=== PATIENT | female | born 1945 | race Two or more races ===

== ENCOUNTER 2023-01-10 17:51 | Inpatient (IN) | payer MEDICARE, OTHER ==
[~2023-01-10] VITALS: Ht 152.4 cm; Wt 84.1 kg
[2023-01-10 19:42] LABS: Urine Bacteria NONE SEEN /hpf (None Seen); Urine Blood Negative /uL (Negative); Urine Specific Gravity 1.005 (1.001-1.035); Urine WBC 2 /hpf (0 - 5)
[2023-01-10 20:14] LABS: Basophils # (auto) 0 10 ^3/uL (0-0.2); Basophils % (auto) 0.9 % (0.0-2.0); Eosinophils # (auto) 0.1 10 ^3/uL (0-0.8); Eosinophils % (auto) 1.1 % (0.0-7.0); Hematocrit 37.4 % (36.0-46.0); Lymphocytes % (auto) 40.8 % (10.0-50.0); Mean Corpuscular Hemoglobin 27.9 pg (28.0-32.0); Monocytes # (auto) 0.7 10 ^3/uL (0-1.3); Monocytes % (auto) 14.2 % (0.0-12.0); Neutrophils # (auto) 2.1 10 ^3/uL (1.6-8.6); Nucleated Red Blood Cells % 0.2 %; Red Blood Cells 4.29 10^6/uL (4.0-5.20); Red Cell Distribution Width 19.1 % (11.8-14.3); White Blood Cell 4.8 10^3/uL (4.4-10.8)
[2023-01-10 20:43] LABS: Calcium 8.2 mg/dL (8.5-10.1); Magnesium 2.2 mg/dL (1.6-2.6); Potassium 3.3 mmol/L (3.5-5.1)
[2023-01-10 20:46] LABS: BUN/Creatinine Ratio 14.3 (10.0-20.0); Bilirubin, Total 1.4 mg/dL (0.2-1.0); Total Protein 7.3 g/dL (6.4-8.2)
[2023-01-11] MEDS ORDERED: POTASSIUM EFFERVESENT TAB 25 MEQ PO ONE (01:45)
[2023-01-11] MEDS ORDERED: DOCUSATE SOD 100 MG CAP PO PRN (05:00)
[2023-01-11] MEDS ORDERED: ONDANSETRON HCL 4 MG/2 ML VIAL IV PRN (05:00)
[2023-01-11] MEDS ORDERED: ACETAMINOPHEN 325 MG TAB PO PRN (05:00)
[2023-01-11] MEDS ORDERED: DEXTROSE (50%) 50ML SYRG IV PRN (05:00)
[2023-01-11] MEDS ORDERED: FUROSEMIDE 40 MG/4 ML VIAL IV ONE (05:00)
[2023-01-11] MEDS: HYDROcodone-ACET 5/325MG TAB PO PRN ×2 (05:35→23:37)
[2023-01-11] MEDS: SODIUM CHLOR 0.9% PF (SALINE LOCK) 10ML VIAL/SYR IV SCH ×3 (05:36→22:00)
[2023-01-11] MEDS ORDERED: NITROGLYCERIN 0.4 MG SL TAB SL PRN (05:45)
[2023-01-11] MEDS ORDERED: MORPHINE SULFATE INJ 2 MG/ml SYRG IV PRN (05:45)
[2023-01-11] MEDS ORDERED: AZITHROMYCIN 500MG/ 250ML 250 ML IV ONE (06:30)
[2023-01-11] MEDS: InsuLIN REG 1unit/0.01ml Soln (100units/ml) SC SCH ×4 (06:57→23:30)
[2023-01-11] MEDS: ACCU-CHEK COMFORT CURVE STRIP VI SCH ×4 (06:57→23:28)
[2023-01-11 07:01] LABS: Basophils # (auto) 0.1 10 ^3/uL (0-0.2); Basophils % (auto) 1.1 % (0.0-2.0); Eosinophils # (auto) 0.1 10 ^3/uL (0-0.8); Eosinophils % (auto) 1.6 % (0.0-7.0); Hematocrit 38.7 % (36.0-46.0); Hemoglobin 12.9 g/dL (12.2-16.2); Lymphocytes # (auto) 1.6 10 ^3/uL (0.4-5.4); Lymphocytes % (auto) 33.8 % (10.0-50.0); Mean Corpuscular Hemoglobin 28.9 pg (28.0-32.0); Mean Corpuscular Hgb Conc. 33.4 g/dL (32.0-36.0); Mean Corpuscular Volume 86.5 fL (80.0-100.0); Monocytes # (auto) 0.7 10 ^3/uL (0-1.3); Monocytes % (auto) 14.6 % (0.0-12.0); Neutrophils # (auto) 2.4 10 ^3/uL (1.6-8.6); Neutrophils % (auto) 48.9 % (37.0-80.0); Nucleated Red Blood Cells % 0.2 %; Red Blood Cells 4.48 10^6/uL (4.0-5.20); Red Cell Distribution Width 18.7 % (11.8-14.3); White Blood Cell 4.9 10^3/uL (4.4-10.8)
[2023-01-11 07:27] LABS: Calcium 8.4 mg/dL (8.5-10.1); Potassium 3.6 mmol/L (3.5-5.1)
[2023-01-11 07:49] LABS: BUN/Creatinine Ratio 11.5 (10.0-20.0); Bilirubin, Total 1.4 mg/dL (0.2-1.0)
[2023-01-11] MEDS: AZITHROMYCIN 500MG/ 250ML 250 ML IV SCH (10:11)
[2023-01-11] MEDS: FUROSEMIDE 40 MG/4 ML VIAL IV SCH (10:11)
[2023-01-11] MEDS: CARVEDILOL 3.125 MG TAB PO SCH ×2 (10:11→23:28)
[2023-01-11] MEDS: ASPirin 81 mg TAB PO SCH (10:27)
[2023-01-11 11:38] LABS: Urine Bacteria NONE SEEN /hpf (None Seen); Urine Blood Negative /uL (Negative); Urine Specific Gravity 1.005 (1.001-1.035); Urine WBC 1 /hpf (0 - 5)
[2023-01-11] MEDS: ATORVASTATIN 20 MG TAB PO SCH (23:28)
[2023-01-12 05:57] LABS: Basophils # (auto) 0 10 ^3/uL (0-0.2); Basophils % (auto) 0.7 % (0.0-2.0); Eosinophils # (auto) 0.1 10 ^3/uL (0-0.8); Eosinophils % (auto) 2.1 % (0.0-7.0); Hematocrit 35.9 % (36.0-46.0); Hemoglobin 11.6 g/dL (12.2-16.2); Lymphocytes # (auto) 1.3 10 ^3/uL (0.4-5.4); Lymphocytes % (auto) 25.8 % (10.0-50.0); Mean Corpuscular Hgb Conc. 32.2 g/dL (32.0-36.0); Mean Corpuscular Volume 86.9 fL (80.0-100.0); Monocytes # (auto) 0.7 10 ^3/uL (0-1.3); Monocytes % (auto) 12.8 % (0.0-12.0); Neutrophils % (auto) 58.6 % (37.0-80.0); Nucleated Red Blood Cells % 0.2 %; Red Blood Cells 4.13 10^6/uL (4.0-5.20); Red Cell Distribution Width 18.7 % (11.8-14.3); White Blood Cell 5.1 10^3/uL (4.4-10.8)
[2023-01-12] MEDS: SODIUM CHLOR 0.9% PF (SALINE LOCK) 10ML VIAL/SYR IV SCH ×3 (06:06→21:58)
[2023-01-12 06:27] LABS: Albumin 2.3 g/dL (3.4-5.0); BUN/Creatinine Ratio 12.8 (10.0-20.0); Calcium 8.4 mg/dL (8.5-10.1); Potassium 3.1 mmol/L (3.5-5.1)
[2023-01-12 06:31] LABS: Bilirubin, Total 1.4 mg/dL (0.2-1.0); Total Protein 6.7 g/dL (6.4-8.2)
[2023-01-12] MEDS: ACCU-CHEK COMFORT CURVE STRIP VI SCH ×4 (06:49→21:57)
[2023-01-12] MEDS: InsuLIN REG 1unit/0.01ml Soln (100units/ml) SC SCH ×4 (06:50→22:05)
[2023-01-12] MEDS ORDERED: POTASSIUM EFFERVESENT TAB 25 MEQ PO ONE (12:15)
[2023-01-12] MEDS: CARVEDILOL 3.125 MG TAB PO SCH (12:18)
[2023-01-12] MEDS: AZITHROMYCIN 500MG/ 250ML 250 ML IV SCH (12:18)
[2023-01-12] MEDS: FUROSEMIDE 40 MG/4 ML VIAL IV SCH ×2 (12:18→18:00)
[2023-01-12] MEDS: ASPirin 81 mg TAB PO SCH (12:23)
[2023-01-12] MEDS ORDERED: LOSA50TA46 PO (13:59)
[2023-01-12] MEDS ORDERED: FURO40TA4 PO (13:59)
[2023-01-12] MEDS ORDERED: INSLANTI SC (13:59)
[2023-01-12] MEDS ORDERED: LATA0.008 EACHEYE (13:59)
[2023-01-12] MEDS ORDERED: ATOR-47 PO (13:59)
[2023-01-12 14:00] VITALS: BP 86/37
[2023-01-12 16:31] LABS: INR 1.3 (0.9-1.15); Partial Thromboplastin Time 29.9 sec (24.6-33.4)
[2023-01-12] MEDS: ATORVASTATIN 20 MG TAB PO SCH (21:57)
[2023-01-12 22:00] VITALS: BP 93/40
[2023-01-13] VITALS (69 sets, daily range): BP systolic 48–124; BP diastolic 14–77
[2023-01-13] MEDS: FUROSEMIDE 40 MG/4 ML VIAL IV SCH (06:00)
[2023-01-13] MEDS: EMPAGLIFLOZIN 10 MG TAB PO SCH (06:34)
[2023-01-13] MEDS: ACCU-CHEK COMFORT CURVE STRIP VI SCH ×4 (06:35→21:47)
[2023-01-13] MEDS: InsuLIN REG 1unit/0.01ml Soln (100units/ml) SC SCH ×4 (06:35→21:47)
[2023-01-13] MEDS: SODIUM CHLOR 0.9% PF (SALINE LOCK) 10ML VIAL/SYR IV SCH ×3 (06:35→21:48)
[2023-01-13 07:56] LABS: Albumin 2.6 g/dL (3.4-5.0); Calcium 8.3 mg/dL (8.5-10.1); Magnesium 2.1 mg/dL (1.6-2.6); Potassium 3.7 mmol/L (3.5-5.1)
[2023-01-13 07:59] LABS: BUN/Creatinine Ratio 15.9 (10.0-20.0); Bilirubin, Total 1.2 mg/dL (0.2-1.0); Total Protein 7.2 g/dL (6.4-8.2)
[2023-01-13] MEDS: ASPirin 81 mg TAB PO SCH (10:04)
[2023-01-13] MEDS ORDERED: DOPamine 1600MCG/ML D5W 250 ML IV SCH (10:15)
[2023-01-13] MEDS ORDERED: BUMETANIDE 2.5mg/10ml (0.25 mg/ml) INJ IV ONE (13:00)
[2023-01-13] MEDS: DOPamine 1600MCG/ML D5W 250 ML IV SCH (13:15)
[2023-01-13] MEDS ORDERED: ETOMIDATE (2MG/ML) 20ML VIAL IV ONE ×2 (13:24→13:45)
[2023-01-13] MEDS ORDERED: ROCURONIUM 10MG/ML 10ML VIAL IV ONE ×2 (13:24→13:45)
[2023-01-13] MEDS ORDERED: NOREPINEPHRINE 8 MG/250ML KIT 250 ML IV ONE (13:27)
[2023-01-13] MEDS ORDERED: fentaNYL Drip 2500mCg/250mlNS 250 ML IV ONE (13:30)
[2023-01-13] MEDS ORDERED: MIDAZOLAM DRIP 50 mg/50mL 50 ML IV ONE (13:31)
[2023-01-13] MEDS: NOREPINEPHRINE 8 MG/250ML KIT 250 ML IV SCH (13:32)
[2023-01-13] MEDS: MIDAZOLAM DRIP 50 mg/50mL 50 ML IV SCH (14:00)
[2023-01-13] MEDS: fentaNYL Drip 2500mCg/250mlNS 250 ML IV SCH (14:05)
[2023-01-13] MEDS ORDERED: DIGOXIN (250MCG/ML) 2 ML AMPULE IV ONE (15:00)
[2023-01-13] MEDS: FUROSEMIDE INJECTION 100 MG in D5W 5% 100 ML IV SCH (15:49)
[2023-01-13 16:15] LABS: Basophils # (auto) 0.1 10 ^3/uL (0-0.2); Basophils % (auto) 0.5 % (0.0-2.0); Eosinophils # (auto) 0 10 ^3/uL (0-0.8); Eosinophils % (auto) 0.2 % (0.0-7.0); Hematocrit 47.5 % (36.0-46.0); Hemoglobin 15.1 g/dL (12.2-16.2); Lymphocytes # (auto) 1.7 10 ^3/uL (0.4-5.4); Lymphocytes % (auto) 14.2 % (10.0-50.0); Mean Corpuscular Hemoglobin 28.4 pg (28.0-32.0); Mean Corpuscular Hgb Conc. 31.8 g/dL (32.0-36.0); Mean Corpuscular Volume 89.2 fL (80.0-100.0); Monocytes # (auto) 0.9 10 ^3/uL (0-1.3); Neutrophils # (auto) 9.1 10 ^3/uL (1.6-8.6); Neutrophils % (auto) 77.1 % (37.0-80.0); Nucleated Red Blood Cells % 0.1 %; Red Blood Cells 5.32 10^6/uL (4.0-5.20); Red Cell Distribution Width 19.4 % (11.8-14.3); White Blood Cell 11.9 10^3/uL (4.4-10.8)
[2023-01-13] MEDS ORDERED: FUROSEMIDE 20 MG/2 ML VIAL IV SCH (18:00)
[2023-01-13] MEDS: ATORVASTATIN 20 MG TAB PO SCH (21:48)
[2023-01-14] VITALS (108 sets, daily range): BP systolic 67–115; BP diastolic 14–70
[2023-01-14] MEDS: FUROSEMIDE INJECTION 100 MG in D5W 5% 100 ML IV SCH ×3 (01:30→21:30)
[2023-01-14 04:24] LABS: Basophils # (auto) 0.1 10 ^3/uL (0-0.2); Basophils % (auto) 0.6 % (0.0-2.0); Eosinophils # (auto) 0.1 10 ^3/uL (0-0.8); Eosinophils % (auto) 1.2 % (0.0-7.0); Hematocrit 43.4 % (36.0-46.0); Hemoglobin 14.3 g/dL (12.2-16.2); Lymphocytes # (auto) 2.3 10 ^3/uL (0.4-5.4); Mean Corpuscular Hemoglobin 28.4 pg (28.0-32.0); Mean Corpuscular Hgb Conc. 32.8 g/dL (32.0-36.0); Mean Corpuscular Volume 86.4 fL (80.0-100.0); Monocytes # (auto) 0.9 10 ^3/uL (0-1.3); Monocytes % (auto) 8.7 % (0.0-12.0); Neutrophils # (auto) 6.5 10 ^3/uL (1.6-8.6); Neutrophils % (auto) 66.5 % (37.0-80.0); Nucleated Red Blood Cells % 0.1 %; Red Blood Cells 5.03 10^6/uL (4.0-5.20); Red Cell Distribution Width 18.6 % (11.8-14.3); White Blood Cell 9.8 10^3/uL (4.4-10.8)
[2023-01-14 04:33] LABS: Calcium 8.5 mg/dL (8.5-10.1)
[2023-01-14] MEDS: SODIUM CHLOR 0.9% PF (SALINE LOCK) 10ML VIAL/SYR IV SCH ×3 (06:25→22:39)
[2023-01-14] MEDS: EMPAGLIFLOZIN 10 MG TAB PO SCH (06:29)
[2023-01-14] MEDS: ACCU-CHEK COMFORT CURVE STRIP VI SCH ×4 (06:48→22:00)
[2023-01-14] MEDS: DOPamine 1600MCG/ML D5W 250 ML IV SCH (06:48)
[2023-01-14] MEDS: InsuLIN REG 1unit/0.01ml Soln (100units/ml) SC SCH ×4 (06:51→22:00)
[2023-01-14] MEDS ORDERED: POTASSIUM EFFERVESENT TAB 25 MEQ PO ONE (09:15)
[2023-01-14] MEDS ORDERED: Glucerna 1.2 Cal 1Liter BOTTLE GT SCH (09:15)
[2023-01-14] MEDS ORDERED: DOPamine 1600MCG/ML D5W 250 ML IV SCH (09:15)
[2023-01-14] MEDS ORDERED: POTASSIUM CHL 20MEQ/100ML 100 ML IV ONE (09:15)
[2023-01-14] MEDS ORDERED: FAMOTIDINE (10MG/ML) 2ML VL IV ONE (09:30)
[2023-01-14] MEDS ORDERED: methylPREDNISolone SOD SUCC 125 MG/2 ML VL IV ONE (09:30)
[2023-01-14] MEDS ORDERED: ACETAMINOPHEN 650 mg PER 20.3 mL UD GT ONE (09:30)
[2023-01-14] MEDS ORDERED: diphenhdrAMINE HCL 50 MG/1 ML VL IV ONE (09:30)
[2023-01-14] MEDS: ASPirin 81 mg TAB PO SCH (09:58)
[2023-01-14] MEDS ORDERED: DIGOXIN (250MCG/ML) 2 ML AMPULE IV SCH (10:00)
[2023-01-14] MEDS ORDERED: POTASSIUM EFFERVESENT TAB 25 MEQ PO SCH (10:00)
[2023-01-14 10:31] LABS: Cholesterol 94 mg/dL (< 200); HDL Cholesterol 40 mg/dL (40-59); LDL Cholesterol 51 mg/dL (< 100); Triglycerides 99 mg/dL (< 150)
[2023-01-14] MEDS: MIDAZOLAM DRIP 50 mg/50mL 50 ML IV SCH (13:45)
[2023-01-14] MEDS: fentaNYL Drip 2500mCg/250mlNS 250 ML IV SCH (13:45)
[2023-01-14] MEDS: FREE WATER GT SCH ×2 (14:00→22:00)
[2023-01-14 14:31] LABS: Magnesium 1.8 mg/dL (1.6-2.6); Potassium 4.4 mmol/L (3.5-5.1)
[2023-01-14] MEDS ORDERED: MAGNESIUM SULFATE 1GM/100ML 100 ML IV ONE (15:00)
[2023-01-14] MEDS: NOREPINEPHRINE 8 MG/250ML KIT 250 ML IV SCH ×2 (15:09→20:07)
[2023-01-14] MEDS ORDERED: AMIODARONE HCL 150 MG in D5W 5% 100 ML IV ONE (15:45)
[2023-01-14] MEDS ORDERED: AMIODARONE 450mg/250ml AE 250 ML IV SCH (16:00)
[2023-01-14] MEDS: PIPERACILLIN-TAZOB 3.375GM 100 ML IV SCH (18:00)
[2023-01-14] MEDS: PHENYLEPHRINE INJ 80 MG in SODIUM CHL 0.9% 242 ML IV SCH (19:52)
[2023-01-14] MEDS ORDERED: ALBUMIN 5% 250 ML IV ONE (20:45)
[2023-01-14] MEDS: ATORVASTATIN 20 MG TAB PO SCH (22:00)
[2023-01-14] MEDS: AMIODARONE 450mg/250ml AE 250 ML IV SCH (22:38)
[2023-01-14] MEDS: VASOPRESSIN 20 UNITS in SODIUM CHL 0.9% 99 ML IV SCH (22:39)
[2023-01-14] MEDS ORDERED: EPINEPHrine HCL 250 ML IV ONE (23:12)
[2023-01-14] MEDS: EPINEPHrine HCL 250 ML IV SCH (23:15)
[2023-01-15] VITALS (106 sets, daily range): BP systolic 0–125; BP diastolic 0–80
[2023-01-15] MEDS ORDERED: SODIUM BICARBONATE 8.4 % INJ 50ML VIAL IV ONE ×4 (01:55→04:15)
[2023-01-15] MEDS ORDERED: ALBUMIN 5% 250 ML IV ONE ×2 (01:58→02:00)
[2023-01-15] MEDS ORDERED: PHENYLEPHRINE IV 250 ML IV ONE (02:48)
[2023-01-15] MEDS ORDERED: PHENYLEPHRINE HCL 10 MG/ML VL ONE (02:49)
[2023-01-15] MEDS: PHENYLEPHRINE INJ 80 MG in SODIUM CHL 0.9% 242 ML IV SCH ×2 (02:50→18:30)
[2023-01-15 03:24] LABS: Alanine Aminotransferase 60 U/L (13-56); Albumin 1.9 g/dL (3.4-5.0); Anion Gap 25 (5-15); Aspartate Aminotransferase 323 U/L (15-37); BUN/Creatinine Ratio 11.1 (10.0-20.0); Blood Urea Nitrogen 19 mg/dL (7-18); Calcium 7.2 mg/dL (8.5-10.1); Carbon Dioxide 11 mmol/L (21-32); Chloride 97 mmol/L (98-107); GFR African American 37 mL/min; GFR Non-African American 31 mL/min; Magnesium 2.5 mg/dL (1.6-2.6); Sodium 133 mmol/L (136-145)
[2023-01-15 03:26] LABS: Alkaline Phosphatase 62 U/L (45-117); Bilirubin, Total 3.3 mg/dL (0.2-1.0); Total Protein 5.6 g/dL (6.4-8.2)
[2023-01-15 03:29] LABS: Glucose 42 mg/dL (74-106)
[2023-01-15] MEDS ORDERED: DEXTROSE 10% 250 ML IV ONE ×2 (03:30→04:48)
[2023-01-15] MEDS ORDERED: DOPamine 1600MCG/ML D5W 250 ML IV ONE (03:39)
[2023-01-15] MEDS ORDERED: SODIUM BICARBONATE 8.4% INJ 50ML SYRINGE ONE (04:08)
[2023-01-15] MEDS ORDERED: SODIUM BICARBONATE 50ML VIAL 150 ML in SOD CHL 0.45% 1,000 ML IV ONE (04:15)
[2023-01-15] MEDS: DOPamine 1600MCG/ML D5W 250 ML IV SCH ×2 (04:24→08:36)
[2023-01-15 04:40] LABS: White Blood Cell 12.3 10^3/uL (4.4-10.8)
[2023-01-15 04:43] LABS: Hematocrit 40.7 % (36.0-46.0); Hemoglobin 12.3 g/dL (12.2-16.2); Mean Corpuscular Hemoglobin 28.9 pg (28.0-32.0); Mean Corpuscular Hgb Conc. 30.3 g/dL (32.0-36.0); Mean Corpuscular Volume 95.6 fL (80.0-100.0); Red Blood Cells 4.25 10^6/uL (4.0-5.20); Red Cell Distribution Width 19.6 % (11.8-14.3)
[2023-01-15 04:49] LABS: Basophils % (manual) 0 (0.0-2.0); Blast Cells 0; Eosinophils % (manual) 0 (0-7); Metamyelocytes % 0; Promyelocytes % 0; Reactive Lymphocytes 0
[2023-01-15 05:02] LABS: INR 3.44 (0.9-1.15)
[2023-01-15 05:03] LABS: Albumin 2.4 g/dL (3.4-5.0); Calcium 8.8 mg/dL (8.5-10.1); Partial Thromboplastin Time 70.6 sec (24.6-33.4); Potassium 4.2 mmol/L (3.5-5.1)
[2023-01-15 05:08] LABS: Bilirubin, Total 3.8 mg/dL (0.2-1.0); Magnesium 2.7 mg/dL (1.6-2.6); Total Protein 6.2 g/dL (6.4-8.2)
[2023-01-15] MEDS: EPINEPHrine HCL 250 ML IV SCH (05:12)
[2023-01-15] MEDS: NOREPINEPHRINE 8 MG/250ML KIT 250 ML IV SCH ×2 (05:13→09:27)
[2023-01-15] MEDS ORDERED: DEXTROSE 10% 250 ML Bag IV ONE (05:15)
[2023-01-15 05:20] LABS: BUN/Creatinine Ratio 12.3 (10.0-20.0)
[2023-01-15] MEDS: PIPERACILLIN-TAZOB 3.375GM 100 ML IV SCH ×4 (06:00→18:29)
[2023-01-15] MEDS: FREE WATER GT SCH (06:00)
[2023-01-15] MEDS: SODIUM CHLOR 0.9% PF (SALINE LOCK) 10ML VIAL/SYR IV SCH ×3 (06:37→22:10)
[2023-01-15] MEDS: InsuLIN REG 1unit/0.01ml Soln (100units/ml) SC SCH ×4 (06:39→22:10)
[2023-01-15] MEDS: ACCU-CHEK COMFORT CURVE STRIP VI SCH ×4 (06:40→22:10)
[2023-01-15 07:53] LABS: Band Neutrophils % (manual) 13; Lymphocytes % (manual) 41 (10.0-50.0); Monocytes % (manual) 4 (0-12); Myelocytes % 1
[2023-01-15] MEDS: VASOPRESSIN 20 UNITS in SODIUM CHL 0.9% 99 ML IV SCH ×2 (08:00→19:28)
[2023-01-15] MEDS: SODIUM BICARBONATE 50ML VIAL 150 ML in D5W 5% 1,000 ML IV SCH ×2 (10:20→22:58)
[2023-01-15] MEDS: ASPirin 81 mg TAB PO SCH (10:26)
[2023-01-15] MEDS: EPINEPHrine HCL INJECTION 16 MG in D5W 5% 234 ML IV SCH (12:30)
[2023-01-15] MEDS: fentaNYL Drip 2500mCg/250mlNS 250 ML IV SCH (12:52)
[2023-01-15] MEDS: AMIODARONE 450mg/250ml AE 250 ML IV SCH (12:52)
[2023-01-15] MEDS: MIDAZOLAM DRIP 50 mg/50mL 50 ML IV SCH ×2 (12:53→13:45)
[2023-01-15] MEDS: IBUPROFEN 100MG/5ML ORAL SUSP 100 MG/5 ML UD GT PRN ×2 (12:55→17:38)
[2023-01-15] MEDS: DOPamine 3200MCG/ML 250 ML IV SCH ×2 (13:14→23:03)
[2023-01-15] MEDS: NOREPINEPHRINE BITARTRATE 32 MG in SODIUM CHL 0.9% 218 ML IV SCH (13:40)
[2023-01-15 14:45] LABS: Calcium 7.9 mg/dL (8.5-10.1); Potassium 3.9 mmol/L (3.5-5.1)
[2023-01-15] MEDS: FUROSEMIDE 40 MG/4 ML VIAL IV SCH (17:39)
[2023-01-16] VITALS (108 sets, daily range): BP systolic 95–128; BP diastolic 53–77
[2023-01-16] MEDS: PIPERACILLIN-TAZOB 3.375GM 100 ML IV SCH ×4 (00:52→18:30)
[2023-01-16] MEDS: MIDAZOLAM DRIP 50 mg/50mL 50 ML IV SCH (02:16)
[2023-01-16 04:33] LABS: Basophils # (auto) 0.1 10 ^3/uL (0-0.2); Basophils % (auto) 0.5 % (0.0-2.0); Eosinophils # (auto) 0.1 10 ^3/uL (0-0.8); Eosinophils % (auto) 0.8 % (0.0-7.0); Hemoglobin 12.8 g/dL (12.2-16.2); Lymphocytes # (auto) 1.3 10 ^3/uL (0.4-5.4); Mean Corpuscular Hemoglobin 28.9 pg (28.0-32.0); Mean Corpuscular Volume 90.2 fL (80.0-100.0); Monocytes # (auto) 0.5 10 ^3/uL (0-1.3); Monocytes % (auto) 4.9 % (0.0-12.0); Neutrophils # (auto) 8.6 10 ^3/uL (1.6-8.6); Neutrophils % (auto) 81.8 % (37.0-80.0); Nucleated Red Blood Cells % 0.5 %; Red Blood Cells 4.43 10^6/uL (4.0-5.20); Red Cell Distribution Width 19.4 % (11.8-14.3); White Blood Cell 10.5 10^3/uL (4.4-10.8)
[2023-01-16 04:55] LABS: BUN/Creatinine Ratio 11.1 (10.0-20.0)
[2023-01-16] MEDS: FUROSEMIDE 40 MG/4 ML VIAL IV SCH (06:21)
[2023-01-16] MEDS: NOREPINEPHRINE BITARTRATE 32 MG in SODIUM CHL 0.9% 218 ML IV SCH (06:25)
[2023-01-16] MEDS: ACCU-CHEK COMFORT CURVE STRIP VI SCH ×4 (07:31→21:40)
[2023-01-16] MEDS: InsuLIN REG 1unit/0.01ml Soln (100units/ml) SC SCH ×4 (07:32→21:40)
[2023-01-16] MEDS: AMIODARONE 450mg/250ml AE 250 ML IV SCH (07:33)
[2023-01-16] MEDS: SODIUM CHLOR 0.9% PF (SALINE LOCK) 10ML VIAL/SYR IV SCH ×3 (07:33→21:40)
[2023-01-16] MEDS: VASOPRESSIN 20 UNITS in SODIUM CHL 0.9% 99 ML IV SCH (07:34)
[2023-01-16] MEDS: DOPamine 3200MCG/ML 250 ML IV SCH ×2 (08:49→18:38)
[2023-01-16] MEDS: ASPirin 81 mg TAB PO SCH (10:00)
[2023-01-16] MEDS: PHENYLEPHRINE INJ 80 MG in SODIUM CHL 0.9% 242 ML IV SCH (10:07)
[2023-01-16] MEDS: LACTULOSE 20Gm/30ML SOLN PO SCH ×3 (10:47→21:39)
[2023-01-16] MEDS: EPINEPHrine HCL INJECTION 16 MG in D5W 5% 234 ML IV SCH ×2 (12:27→12:34)
[2023-01-16 15:47] LABS: Partial Thromboplastin Time 49.4 sec (24.6-33.4)
[2023-01-16 15:55] LABS: INR 4.65 (0.9-1.15)
[2023-01-16] MEDS: IBUPROFEN 100MG/5ML ORAL SUSP 100 MG/5 ML UD GT PRN (18:29)
[2023-01-16] MEDS: BUMETANIDE 2.5mg/10ml (0.25 mg/ml) INJ IV SCH (18:29)
[2023-01-17] VITALS (83 sets, daily range): BP systolic 61–112; BP diastolic 55–69
[2023-01-17] MEDS: PIPERACILLIN-TAZOB 3.375GM 100 ML IV SCH ×4 (00:54→17:40)
[2023-01-17 03:23] LABS: Basophils # (auto) 0 10 ^3/uL (0-0.2); Basophils % (auto) 0.2 % (0.0-2.0); Eosinophils # (auto) 0 10 ^3/uL (0-0.8); Eosinophils % (auto) 0.3 % (0.0-7.0); Hematocrit 38.7 % (36.0-46.0); Hemoglobin 12.9 g/dL (12.2-16.2); Lymphocytes # (auto) 0.8 10 ^3/uL (0.4-5.4); Lymphocytes % (auto) 7.2 % (10.0-50.0); Mean Corpuscular Hemoglobin 28.9 pg (28.0-32.0); Mean Corpuscular Hgb Conc. 33.4 g/dL (32.0-36.0); Mean Corpuscular Volume 86.6 fL (80.0-100.0); Monocytes # (auto) 0.5 10 ^3/uL (0-1.3); Monocytes % (auto) 4.9 % (0.0-12.0); Neutrophils # (auto) 9.5 10 ^3/uL (1.6-8.6); Neutrophils % (auto) 87.4 % (37.0-80.0); Nucleated Red Blood Cells % 0.8 %; Red Blood Cells 4.47 10^6/uL (4.0-5.20); Red Cell Distribution Width 19.3 % (11.8-14.3); White Blood Cell 10.8 10^3/uL (4.4-10.8)
[2023-01-17 03:35] LABS: Albumin 2.3 g/dL (3.4-5.0); Calcium 6.5 mg/dL (8.5-10.1); Potassium 4.3 mmol/L (3.5-5.1)
[2023-01-17 03:52] LABS: BUN/Creatinine Ratio 10.4 (10.0-20.0); Bilirubin, Total 8.4 mg/dL (0.2-1.0)
[2023-01-17 03:59] LABS: Partial Thromboplastin Time 47.6 sec (24.6-33.4)
[2023-01-17 04:15] LABS: INR 4.3 (0.9-1.15)
[2023-01-17] MEDS: DOPamine 3200MCG/ML 250 ML IV SCH ×2 (05:08→14:10)
[2023-01-17] MEDS: MIDAZOLAM DRIP 50 mg/50mL 50 ML IV SCH ×2 (05:38→09:04)
[2023-01-17] MEDS: BUMETANIDE 2.5mg/10ml (0.25 mg/ml) INJ IV SCH ×2 (05:39→17:37)
[2023-01-17] MEDS: SODIUM CHLOR 0.9% PF (SALINE LOCK) 10ML VIAL/SYR IV SCH ×3 (05:39→22:10)
[2023-01-17] MEDS: InsuLIN REG 1unit/0.01ml Soln (100units/ml) SC SCH ×4 (07:00→22:00)
[2023-01-17] MEDS: NOREPINEPHRINE BITARTRATE 32 MG in SODIUM CHL 0.9% 218 ML IV SCH (07:50)
[2023-01-17] MEDS: LACTULOSE 20Gm/30ML SOLN PO SCH ×3 (08:04→22:03)
[2023-01-17] MEDS: ACCU-CHEK COMFORT CURVE STRIP VI SCH ×4 (09:07→22:04)
[2023-01-17] MEDS: ASPirin 81 mg TAB PO SCH (10:00)
[2023-01-17] MEDS: AMIODARONE 450mg/250ml AE 250 ML IV SCH (10:00)
[2023-01-17] MEDS: EPINEPHrine HCL INJECTION 16 MG in D5W 5% 234 ML IV SCH (12:54)
[2023-01-17] MEDS: fentaNYL Drip 2500mCg/250mlNS 250 ML IV SCH (13:45)
[2023-01-17] MEDS ORDERED: FAMOTIDINE INJECTION 40 MG in SODIUM CHL 0.9% 100 ML IV ONE (14:00)
[2023-01-17] MEDS: PHENYLEPHRINE INJ 80 MG in SODIUM CHL 0.9% 242 ML IV SCH (15:30)
[2023-01-17] MEDS: FAMOTIDINE (10MG/ML) 2ML VL IV SCH (17:36)
[2023-01-18] VITALS (104 sets, daily range): BP systolic 89–110; BP diastolic 46–71
[2023-01-18] MEDS: DOPamine 3200MCG/ML 250 ML IV SCH ×3 (00:40→21:04)
[2023-01-18] MEDS: PIPERACILLIN-TAZOB 3.375GM 100 ML IV SCH ×4 (00:40→17:18)
[2023-01-18] MEDS: AMIODARONE 450mg/250ml AE 250 ML IV SCH ×2 (01:00→16:00)
[2023-01-18 03:49] LABS: Basophils # (auto) 0 10 ^3/uL (0-0.2); Basophils % (auto) 0.2 % (0.0-2.0); Eosinophils # (auto) 0.3 10 ^3/uL (0-0.8); Eosinophils % (auto) 2.6 % (0.0-7.0); Hemoglobin 13.7 g/dL (12.2-16.2); Lymphocytes # (auto) 0.9 10 ^3/uL (0.4-5.4); Lymphocytes % (auto) 7.6 % (10.0-50.0); Mean Corpuscular Hemoglobin 28.8 pg (28.0-32.0); Mean Corpuscular Hgb Conc. 33.4 g/dL (32.0-36.0); Mean Corpuscular Volume 86.1 fL (80.0-100.0); Monocytes # (auto) 0.5 10 ^3/uL (0-1.3); Monocytes % (auto) 4.5 % (0.0-12.0); Neutrophils # (auto) 9.5 10 ^3/uL (1.6-8.6); Neutrophils % (auto) 85.1 % (37.0-80.0); Nucleated Red Blood Cells % 0.5 %; Red Blood Cells 4.76 10^6/uL (4.0-5.20); Red Cell Distribution Width 18.7 % (11.8-14.3); White Blood Cell 11.2 10^3/uL (4.4-10.8)
[2023-01-18] MEDS: VASOPRESSIN 20 UNITS in SODIUM CHL 0.9% 99 ML IV SCH ×2 (04:04→15:11)
[2023-01-18 04:07] LABS: Calcium 6.3 mg/dL (8.5-10.1); Potassium 4.8 mmol/L (3.5-5.1)
[2023-01-18 04:25] LABS: Bilirubin, Total 9.6 mg/dL (0.2-1.0)
[2023-01-18] MEDS: BUMETANIDE 2.5mg/10ml (0.25 mg/ml) INJ IV SCH ×3 (06:14→17:18)
[2023-01-18] MEDS: LACTULOSE 20Gm/30ML SOLN PO SCH ×3 (06:14→21:53)
[2023-01-18] MEDS: SODIUM CHLOR 0.9% PF (SALINE LOCK) 10ML VIAL/SYR IV SCH ×3 (06:15→21:53)
[2023-01-18] MEDS: ACCU-CHEK COMFORT CURVE STRIP VI SCH ×4 (06:15→21:53)
[2023-01-18] MEDS: InsuLIN REG 1unit/0.01ml Soln (100units/ml) SC SCH ×4 (06:21→21:57)
[2023-01-18] MEDS: MIDAZOLAM DRIP 50 mg/50mL 50 ML IV SCH (06:43)
[2023-01-18] MEDS: NOREPINEPHRINE BITARTRATE 32 MG in SODIUM CHL 0.9% 218 ML IV SCH (09:15)
[2023-01-18] MEDS ORDERED: FAMOTIDINE INJECTION 40 MG in SODIUM CHL 0.9% 100 ML IV SCH (10:00)
[2023-01-18] MEDS: ASPirin 81 mg TAB PO SCH (10:45)
[2023-01-18] MEDS: FAMOTIDINE (10MG/ML) 2ML VL IV SCH (10:46)
[2023-01-18] MEDS: fentaNYL Drip 2500mCg/250mlNS 250 ML IV SCH (13:45)
[2023-01-18] MEDS: PHENYLEPHRINE INJ 80 MG in SODIUM CHL 0.9% 242 ML IV SCH (15:30)
[2023-01-19] VITALS (102 sets, daily range): BP systolic 81–108; BP diastolic 40–66
[2023-01-19] MEDS: PIPERACILLIN-TAZOB 3.375GM 100 ML IV SCH ×6 (00:51→23:59)
[2023-01-19] MEDS: MIDAZOLAM DRIP 50 mg/50mL 50 ML IV SCH (01:49)
[2023-01-19] MEDS: VASOPRESSIN 20 UNITS in SODIUM CHL 0.9% 99 ML IV SCH ×2 (02:18→13:25)
[2023-01-19 04:35] LABS: Basophils # (auto) 0 10 ^3/uL (0-0.2); Monocytes # (auto) 0.5 10 ^3/uL (0-1.3)
[2023-01-19 04:38] LABS: Basophils % (auto) 0.2 % (0.0-2.0); Eosinophils # (auto) 0.1 10 ^3/uL (0-0.8); Eosinophils % (auto) 1.2 % (0.0-7.0); Hematocrit 39.5 % (36.0-46.0); Hemoglobin 13.4 g/dL (12.2-16.2); Lymphocytes # (auto) 0.9 10 ^3/uL (0.4-5.4); Lymphocytes % (auto) 9.2 % (10.0-50.0); Mean Corpuscular Hemoglobin 28.7 pg (28.0-32.0); Mean Corpuscular Hgb Conc. 33.9 g/dL (32.0-36.0); Mean Corpuscular Volume 84.8 fL (80.0-100.0); Neutrophils # (auto) 8.4 10 ^3/uL (1.6-8.6); Neutrophils % (auto) 84.4 % (37.0-80.0); Nucleated Red Blood Cells % 0.3 %; Red Blood Cells 4.66 10^6/uL (4.0-5.20); Red Cell Distribution Width 18.7 % (11.8-14.3); White Blood Cell 9.9 10^3/uL (4.4-10.8)
[2023-01-19 04:52] LABS: Albumin 1.8 g/dL (3.4-5.0); Calcium 6.6 mg/dL (8.5-10.1)
[2023-01-19 05:02] LABS: BUN/Creatinine Ratio 11.8 (10.0-20.0); Bilirubin, Total 9.8 mg/dL (0.2-1.0); Total Protein 5.7 g/dL (6.4-8.2)
[2023-01-19] MEDS: BUMETANIDE 2.5mg/10ml (0.25 mg/ml) INJ IV SCH ×2 (06:07→17:23)
[2023-01-19] MEDS: ACCU-CHEK COMFORT CURVE STRIP VI SCH ×4 (06:08→23:38)
[2023-01-19] MEDS: SODIUM CHLOR 0.9% PF (SALINE LOCK) 10ML VIAL/SYR IV SCH ×3 (06:08→23:38)
[2023-01-19] MEDS: InsuLIN REG 1unit/0.01ml Soln (100units/ml) SC SCH ×4 (06:14→23:39)
[2023-01-19] MEDS: LACTULOSE 20Gm/30ML SOLN PO SCH ×3 (06:23→23:45)
[2023-01-19] MEDS: AMIODARONE 450mg/250ml AE 250 ML IV SCH ×2 (07:00→22:00)
[2023-01-19] MEDS: DOPamine 3200MCG/ML 250 ML IV SCH ×2 (07:44→18:48)
[2023-01-19] MEDS: EPINEPHrine HCL INJECTION 16 MG in D5W 5% 234 ML IV SCH (09:10)
[2023-01-19] MEDS: NOREPINEPHRINE BITARTRATE 32 MG in SODIUM CHL 0.9% 218 ML IV SCH (09:10)
[2023-01-19] MEDS: FAMOTIDINE (10MG/ML) 2ML VL IV SCH (09:11)
[2023-01-19] MEDS: ASPirin 81 mg TAB PO SCH (09:11)
[2023-01-19] MEDS: PHENYLEPHRINE INJ 80 MG in SODIUM CHL 0.9% 242 ML IV SCH (15:30)
[2023-01-19] MEDS: PROPOFOL 100 ML IV SCH (17:55)
[2023-01-19] MEDS: fentaNYL Drip 2500mCg/250mlNS 250 ML IV SCH (17:55)
[2023-01-19 18:20] LABS: INR 2.77 (0.9-1.15)
[2023-01-19 18:24] LABS: Anion Gap 18 (5-15); BUN/Creatinine Ratio 12.2 (10.0-20.0); Blood Urea Nitrogen 58 mg/dL (7-18); Calcium 7.1 mg/dL (8.5-10.1); Carbon Dioxide 25 mmol/L (21-32); Chloride 83 mmol/L (98-107); GFR African American 11 mL/min; GFR Non-African American 9 mL/min; Glucose 113 mg/dL (74-106); Potassium 5.3 mmol/L (3.5-5.1); Sodium 126 mmol/L (136-145)
[2023-01-19] MEDS ORDERED: ALBUTEROL SULF 2.5 MG/0.5ML(0.5%) NEB SOLN NEB ONE (20:15)
[2023-01-19] MEDS ORDERED: InsuLIN REG 1unit/0.01ml Soln (100units/ml) IV ONE (20:15)
[2023-01-19] MEDS ORDERED: CALCIUM GLUC 1,000mg/50ml-NS 50 ML IV ONE (20:15)
[2023-01-19] MEDS ORDERED: DEXTROSE (50%) 50ML SYRG IV ONE (20:15)
[2023-01-19] MEDS ORDERED: SODIUM ZIRCONIUM CYCL 10 GM PAK GT SCH (20:15)
[2023-01-19] MEDS ORDERED: SODIUM BICARBONATE 8.4 % INJ 50ML VIAL IV ONE (20:15)
[2023-01-19] MEDS ORDERED: DEXTROSE 10% 250 ML IV ONE (20:35)
[2023-01-20] VITALS (80 sets, daily range): BP systolic 43–124; BP diastolic 3–94
[2023-01-20] MEDS ORDERED: EPINEPHrine HCL 250 ML IV ONE (00:13)
[2023-01-20] MEDS ORDERED: EPINEPHrine HCL 1 MG/1 ML AMP ONE ×2 (00:17→00:21)
[2023-01-20] MEDS: VASOPRESSIN 20 UNITS in SODIUM CHL 0.9% 99 ML IV SCH ×4 (00:32→23:24)
[2023-01-20] MEDS: EPINEPHrine HCL INJECTION 16 MG in D5W 5% 234 ML IV SCH ×2 (00:37→08:37)
[2023-01-20 04:28] LABS: Basophils # (auto) 0 10 ^3/uL (0-0.2); Basophils % (auto) 0.1 % (0.0-2.0); Eosinophils # (auto) 0.2 10 ^3/uL (0-0.8); Eosinophils % (auto) 0.9 % (0.0-7.0); Hematocrit 49.1 % (36.0-46.0); Hemoglobin 16.4 g/dL (12.2-16.2); Lymphocytes # (auto) 1.3 10 ^3/uL (0.4-5.4); Mean Corpuscular Hemoglobin 28.9 pg (28.0-32.0); Mean Corpuscular Hgb Conc. 33.4 g/dL (32.0-36.0); Mean Corpuscular Volume 86.7 fL (80.0-100.0); Monocytes % (auto) 5.4 % (0.0-12.0); Neutrophils # (auto) 16.4 10 ^3/uL (1.6-8.6); Neutrophils % (auto) 86.6 % (37.0-80.0); Nucleated Red Blood Cells % 0.7 %; Red Blood Cells 5.66 10^6/uL (4.0-5.20); Red Cell Distribution Width 19.1 % (11.8-14.3); White Blood Cell 18.9 10^3/uL (4.4-10.8)
[2023-01-20] MEDS ORDERED: DOPamine 1600MCG/ML D5W 250 ML IV ONE (04:37)
[2023-01-20] MEDS: BUMETANIDE 2.5mg/10ml (0.25 mg/ml) INJ IV SCH ×2 (05:57→18:17)
[2023-01-20] MEDS: PIPERACILLIN-TAZOB 3.375GM 100 ML IV SCH (05:57)
[2023-01-20] MEDS: LACTULOSE 20Gm/30ML SOLN PO SCH ×3 (05:57→21:35)
[2023-01-20] MEDS: InsuLIN REG 1unit/0.01ml Soln (100units/ml) SC SCH ×4 (06:17→21:36)
[2023-01-20] MEDS: SODIUM CHLOR 0.9% PF (SALINE LOCK) 10ML VIAL/SYR IV SCH ×3 (06:17→21:36)
[2023-01-20] MEDS: ACCU-CHEK COMFORT CURVE STRIP VI SCH ×4 (06:17→21:35)
[2023-01-20 06:41] LABS: Albumin 1.6 g/dL (3.4-5.0); Calcium 7.4 mg/dL (8.5-10.1); Potassium 4.8 mmol/L (3.5-5.1)
[2023-01-20 06:45] LABS: BUN/Creatinine Ratio 11.6 (10.0-20.0); Bilirubin, Total 11.2 mg/dL (0.2-1.0); Total Protein 5.7 g/dL (6.4-8.2)
[2023-01-20 07:02] LABS: Eosinophils # (auto) 0.1 10 ^3/uL (0-0.8); Lymphocytes # (auto) 0.9 10 ^3/uL (0.4-5.4); Red Cell Distribution Width 19.2 % (11.8-14.3)
[2023-01-20 07:05] LABS: Basophils # (auto) 0.1 10 ^3/uL (0-0.2); Basophils % (auto) 0.3 % (0.0-2.0); Eosinophils % (auto) 0.4 % (0.0-7.0); Hematocrit 48.8 % (36.0-46.0); Hemoglobin 16.5 g/dL (12.2-16.2); Lymphocytes % (auto) 5.2 % (10.0-50.0); Mean Corpuscular Hgb Conc. 33.7 g/dL (32.0-36.0); Monocytes # (auto) 0.6 10 ^3/uL (0-1.3); Monocytes % (auto) 3.2 % (0.0-12.0); Neutrophils # (auto) 16.7 10 ^3/uL (1.6-8.6); Neutrophils % (auto) 90.9 % (37.0-80.0); Nucleated Red Blood Cells % 0.9 %; Red Blood Cells 5.67 10^6/uL (4.0-5.20); White Blood Cell 18.3 10^3/uL (4.4-10.8)
[2023-01-20] MEDS ORDERED: NOREPINEPHRINE 8 MG/250ML KIT 250 ML IV ONE (07:19)
[2023-01-20] MEDS: NOREPINEPHRINE BITARTRATE 32 MG in SODIUM CHL 0.9% 218 ML IV SCH (08:34)
[2023-01-20] MEDS: MIDAZOLAM DRIP 50 mg/50mL 50 ML IV SCH ×2 (09:02→15:17)
[2023-01-20] MEDS: DOPamine 3200MCG/ML 250 ML IV SCH ×2 (09:04→17:54)
[2023-01-20] MEDS ORDERED: LINEZOLID 600MG/300ML 300 ML IV SCH (10:00)
[2023-01-20] MEDS ORDERED: SODIUM CHL 0.9% 1000 ML BAG XX ONE (11:15)
[2023-01-20] MEDS ORDERED: VANCOMYCIN PER PHARMACY 0 MG IV SCH (11:15)
[2023-01-20 11:31] LABS: % Iron Saturation 25.5 % (15-50)
[2023-01-20] MEDS: AMIODARONE 450mg/250ml AE 250 ML IV SCH (13:00)
[2023-01-20] MEDS ORDERED: ALBUMIN 25% 100 ML IV PRN (13:00)
[2023-01-20] MEDS ORDERED: CATHFLO ACTIVASE (ALTEPLASE) 2 MG VIAL IV ONE (13:30)
[2023-01-20] MEDS: fentaNYL Drip 2500mCg/250mlNS 250 ML IV SCH (13:45)
[2023-01-20] MEDS: PROPOFOL 100 ML IV SCH (14:15)
[2023-01-20 14:18] LABS: Hepatitis A Ab IgM Negative; Hepatitis B Core IgM Negative
[2023-01-20 14:22] LABS: Hepatitis C Antibody Reactive (Negative)
[2023-01-20] MEDS: ASPirin 81 mg TAB PO SCH (14:54)
[2023-01-20] MEDS: FAMOTIDINE (10MG/ML) 2ML VL IV SCH (14:54)
[2023-01-20] MEDS: SODIUM ZIRCONIUM CYCL 10 GM PAK GT SCH ×2 (14:58→18:37)
[2023-01-20] MEDS: PHENYLEPHRINE INJ 80 MG in SODIUM CHL 0.9% 242 ML IV SCH (17:13)
[2023-01-20] MEDS ORDERED: DEXTROSE 10% 250 ML IV ONE ×2 (17:39→21:53)
[2023-01-20] MEDS ORDERED: VANCOMYCIN 750mg/250ml 250 ML IV ONE (18:45)
[2023-01-20] MEDS ORDERED: DEXTROSE 10% 250 ML Bag IV ONE (18:45)
[2023-01-21] VITALS (44 sets, daily range): BP systolic 0–86; BP diastolic 0–46
[2023-01-21] MEDS: PHENYLEPHRINE INJ 80 MG in SODIUM CHL 0.9% 242 ML IV SCH ×2 (00:35→07:06)
[2023-01-21] MEDS: SODIUM ZIRCONIUM CYCL 10 GM PAK GT SCH (00:49)
[2023-01-21] MEDS: DOPamine 3200MCG/ML 250 ML IV SCH (02:52)
[2023-01-21] MEDS: NOREPINEPHRINE BITARTRATE 32 MG in SODIUM CHL 0.9% 218 ML IV SCH (02:55)
[2023-01-21] MEDS: AMIODARONE 450mg/250ml AE 250 ML IV SCH (04:00)
[2023-01-21 04:25] LABS: Mean Corpuscular Volume 88.1 fL (80.0-100.0)
[2023-01-21 04:28] LABS: Hematocrit 44.1 % (36.0-46.0); Hemoglobin 14.5 g/dL (12.2-16.2); Mean Corpuscular Hemoglobin 28.9 pg (28.0-32.0); Mean Corpuscular Hgb Conc. 32.8 g/dL (32.0-36.0); Red Cell Distribution Width 19.8 % (11.8-14.3)
[2023-01-21 05:04] LABS: White Blood Cell 41.2 10^3/uL (4.4-10.8)
[2023-01-21 05:05] LABS: Basophils % (manual) 0 (0.0-2.0); Blast Cells 0; Eosinophils % (manual) 0 (0-7); Metamyelocytes % 0; Myelocytes % 0; Promyelocytes % 0; Reactive Lymphocytes 0
[2023-01-21] MEDS: LACTULOSE 20Gm/30ML SOLN PO SCH (06:00)
[2023-01-21] MEDS: BUMETANIDE 2.5mg/10ml (0.25 mg/ml) INJ IV SCH (06:00)
[2023-01-21] MEDS: SODIUM CHLOR 0.9% PF (SALINE LOCK) 10ML VIAL/SYR IV SCH (06:35)
[2023-01-21] MEDS: InsuLIN REG 1unit/0.01ml Soln (100units/ml) SC SCH (07:00)
[2023-01-21] MEDS: ACCU-CHEK COMFORT CURVE STRIP VI SCH (07:20)
[2023-01-21 07:26] LABS: Albumin 1.3 g/dL (3.4-5.0); Bilirubin, Total 10.9 mg/dL (0.2-1.0); Calcium 6.9 mg/dL (8.5-10.1)
[2023-01-21 07:28] LABS: Band Neutrophils % (manual) 16; Lymphocytes % (manual) 14 (10.0-50.0); Monocytes % (manual) 6 (0-12)
[2023-01-21 07:34] LABS: Potassium 6.2 mmol/L (3.5-5.1)
[2023-01-21 07:35] LABS: BUN/Creatinine Ratio 12.2 (10.0-20.0)
[2023-01-21] MEDS ORDERED: LORazepam 2MG/ML-1ML VIAL IV PRN (09:15)
[2023-01-21] MEDS ORDERED: MORPHINE SULFATE INJ 2 MG/ml SYRG IV PRN (09:15)
[2023-01-21] MEDS ORDERED: CEFEPIME 1GM/ 50ML 50 ML IV SCH (10:00)
[2023-01-22] MEDS ORDERED: FAMOTIDINE (10MG/ML) 2ML VL IV SCH (10:00)
== END 2023-01-21 13:40 | DRG 207 ==
LOC: ER 17:51 → TELE 01-11 05:45 → TELE-WESTW 01-12 13:22 → ICU WEST 01-13 13:02
PROVIDERS: ADMIT Nurse Practitioner Family; ATTEND Nurse Practitioner Acute Care
PROC: 5A1955Z Respiratory Ventilation, Greater than 96 Consecutive Hours (ICD-10-PCS; principal; 2023-01-13)
PROC: 0BH17EZ Insertion of Endotracheal Airway into Trachea, Via Natural or Artificial Opening (ICD-10-PCS; 2023-01-13)
PROC: 0W993ZZ Drainage of Right Pleural Cavity, Percutaneous Approach (ICD-10-PCS; 2023-01-13)
PROC: 4A143B0 Monitoring of Venous Pressure, Central, Percutaneous Approach (ICD-10-PCS; 2023-01-13)
PROC: 05HM33Z Insertion of Infusion Device into Right Internal Jugular Vein, Percutaneous Approach (ICD-10-PCS; 2023-01-13)
PROC: 5A0935A Assistance with Respiratory Ventilation, Less than 24 Consecutive Hours, High Flow/Velocity Cannula (ICD-10-PCS; 2023-01-13)
PROC: 5A12012 Performance of Cardiac Output, Single, Manual (ICD-10-PCS; 2023-01-15)
PROC: 06HM33Z Insertion of Infusion Device into Right Femoral Vein, Percutaneous Approach (ICD-10-PCS; 2023-01-20)
PROC: B54BZZA Ultrasonography of Right Lower Extremity Veins, Guidance (ICD-10-PCS; 2023-01-20)
PROC: 03HY32Z Insertion of Monitoring Device into Upper Artery, Percutaneous Approach (ICD-10-PCS; 2023-01-20)
DX: J96.01 Acute respiratory failure with hypoxia (principal); E43 Unspecified severe protein-calorie malnutrition; G93.41 Metabolic encephalopathy; I50.43 Acute on chronic combined systolic (congestive) and diastolic (congestive) heart failure; N17.0 Acute kidney failure with tubular necrosis; K76.7 Hepatorenal syndrome; K72.00 Acute and subacute hepatic failure without coma; D68.4 Acquired coagulation factor deficiency; G93.1 Anoxic brain damage, not elsewhere classified; Z99.11 Dependence on respirator [ventilator] status; I46.9 Cardiac arrest, cause unspecified; Z66 Do not resuscitate; I11.0 Hypertensive heart disease with heart failure; E11.9 Type 2 diabetes mellitus without complications; I08.1 Rheumatic disorders of both mitral and tricuspid valves; E78.5 Hyperlipidemia, unspecified; I27.20 Pulmonary hypertension, unspecified; R79.89 Other specified abnormal findings of blood chemistry; E66.01 Morbid (severe) obesity due to excess calories; Z68.29 Body mass index [BMI] 29.0-29.9, adult; Z95.0 Presence of cardiac pacemaker; Z51.5 Encounter for palliative care; Z79.4 Long term (current) use of insulin; Z90.710 Acquired absence of both cervix and uterus; Z79.899 Other long term (current) drug therapy
CPT/HCPCS: 36415; 36600; 71045; 76604; 76942; 80048; 80053; 80061; 80074; 80202; 81001; 82140; 82728; 82805; 82962; 83036; 83540; 83550; 83605; 83735; 83880; 83986; 84100; 84132; 84443; 84484; 85007; 85025; 85027; 85610; 85730; 87040; 87070; 87077; 87081; 87186; 87205; 89051; 90935; 92950; 93005; 93306; 93970; 94002; 94003; 94640; 95819; 96365; 96375; G0378; J0171; J1265; J1815; J2250; J2543; J2704; J3480; J3490; J7060; P9047